=== PATIENT | female | born 1995 | race Two or more races ===

== ENCOUNTER 2019-12-03 09:32 | Inpatient (IN) ==
[2019-12-03] MEDS ORDERED: MEPERIDINE 50 MG/1 ML VIAL IV PRN (12:51)
[2019-12-03] MEDS ORDERED: ONDANSETRON 4 MG/2 ML VIAL IV PRN (12:51)
[2019-12-03] MEDS ORDERED: BUTORPHANOL 2 MG/ML VIAL IV PRN (12:51)
[2019-12-03] MEDS ORDERED: AMPICILLIN INJ 2,000 MG in SODIUM CHLORIDE 0.9% 100 ML IV ONE (13:23)
[2019-12-03 13:42] LABS: Albumin 2.7 G/DL (3.4-5.0); Bilirubin,Total 0.4 MG/DL (0.2-1.0); Calcium 8.8 MG/DL (8.5-10.1); Osmolality,Calculated 267.8 MOS/KG (273-304); Total Protein 6.4 G/DL (6.4-8.3)
[2019-12-03 13:43] LABS: Basophils % 0.2 % (0.0-0.8); Eosinophils % 0.4 % (0.00-10.9); Hematocrit 29.1 VOL% (35.7-47.0); Hemoglobin 9.2 GM/DL (12.0-16.0); Immature Granulocytes % 1.2 %; Immature Granulocytes Absolute 0.11 #; Lymphocytes # 1.4 10*3/uL (1.4-4.0); Lymphocytes % 15.4 % (21.3-54.2); Mean Corpuscular HGB Conc 31.6 GM/DL (32-36); Mean Corpuscular Volume 80.4 FL (87-102); Mean Platelet Volume 11.2 FL (9.6-12.0); Monocytes % 6.2 % (1.7-12.7); Neutrophils % 76.6 % (38.7-73.9); Platelet Count 196 T/CUMM (130-400); Red Blood Count 3.62 MC/CUMM (3.8-5.5); Red Cell Distribution Width 12.8 % (9.3-17.3); White Blood Count 9.4 T/CUMM (4-12)
[2019-12-03] MEDS: LACTATED RINGERS 1,000 ML IV SCH (13:45)
[2019-12-03] MEDS: AMPICILLIN INJ 1,000 MG in SODIUM CHLORIDE 0.9% 100 ML IV SCH ×2 (18:17→22:00)
[2019-12-04] MEDS ORDERED: OXYTOCIN/LR 20 UNIT/1,000 ML BAG IV SCH (02:00)
[2019-12-04] MEDS: AMPICILLIN INJ 1,000 MG in SODIUM CHLORIDE 0.9% 100 ML IV SCH ×2 (02:17→06:51)
[2019-12-04] MEDS: LACTATED RINGERS 1,000 ML IV SCH (03:57)
[2019-12-04] MEDS ORDERED: NALOXONE 0.4 MG/ML VIAL IV PRN (05:23)
[2019-12-04] MEDS ORDERED: ePHEDrine 50 MG/ML VIAL IV PRN (05:23)
[2019-12-04] MEDS ORDERED: diphenhydrAMINE 50 MG/1 ML VIAL IV PRN (05:23)
[2019-12-04] MEDS ORDERED: fentaNYL 2 MCG/ROPIV 0.2% EPID 100 ML EPIDURAL SCH (05:30)
[2019-12-04] MEDS ORDERED: FAMOTIDINE 20 MG/2 ML VIAL IV PRN (05:32)
[2019-12-04] MEDS ORDERED: CITRIC ACID/SODIUM CITRATE 30 ML UDCUP PO PRN (05:32)
[2019-12-04] MEDS ORDERED: miSOPROStoL 200 MCG TABLET ONE (08:58)
[2019-12-04] MEDS ORDERED: METHYLERGONOVINE 0.2 MG/1 ML AMP ONE (08:59)
[2019-12-04 09:40] LABS: Cord Venous Blood HCO3 22.6 MMOL/L; Cord Venous Blood PCO2 47.2 MMHG; Cord Venous Blood PO2 32.9
[2019-12-04 09:45] LABS: Apearance,Urine CLEAR (Clear); Bilirubin,Urine Negative (Negative); Blood, Urine Negative (Negative); Glucose,Urine (UA) Negative (Negative); Ketones,Urine 20 mg/dL (Negative); Mucus,Urine Occasional /LPF (Occasional); Nitrite,Urine Negative (Negative); Protein,Urine Negative; RBC,Urine <1 /HPF (0-4); Urine Color Yellow (Yellow); Urine Specific Gravity 1.011 (1.001-1.035)
[2019-12-04] MEDS ORDERED: DIPH/TET/ACEL PERT BOOSTER VACCINE 0.5 ML VIAL IM ONE (12:44)
[2019-12-04] MEDS ORDERED: MEASLES/MUMPS/RUBELLA VACCINE 0.5 ML VIAL SUBCUT ONE (12:44)
[2019-12-04] MEDS ORDERED: HYDROCORTISONE 2.5% RECTAL CREAM 30 GM TUBE TOP PRN (13:00)
[2019-12-04] MEDS ORDERED: BENZOCAINE 20%/MENTHOL 0.5% SPRAY 56 GM CAN TOP PRN (13:00)
[2019-12-04] MEDS ORDERED: ACETAMINOPHEN 325 MG TABLET PO PRN (13:00)
[2019-12-04] MEDS ORDERED: LANOLIN 50% CREAM 0.3 OZ TUBE TOP PRN (13:00)
[2019-12-04] MEDS ORDERED: IBUPROFEN 800 MG TABLET PO PRN (13:00)
[2019-12-04] MEDS ORDERED: oxyCODONE/ACETAMINOPHEN 5-325 MG TABLET PO PRN ×2 (13:00)
[2019-12-04] MEDS ORDERED: RHO(D) IMMUNE GLOBULIN 300 MCG SYRINGE IM ONE (13:00)
[2019-12-04] MEDS ORDERED: WITCH HAZEL PADS 100/JAR TOP PRN (13:00)
[2019-12-04] MEDS ORDERED: OXYTOCIN/LR 20 UNIT/1,000 ML BAG IV ONE (14:00)
[2019-12-04] MEDS: FERROUS SULFATE 325 MG TABLET PO SCH ×2 (16:05→22:42)
[2019-12-04] MEDS: DOCUSATE SODIUM 100 MG CAPSULE PO SCH (21:17)
[2019-12-05 04:56] LABS: Basophils % 0.1 % (0.0-0.8); Eosinophils # 0.1 10*3/uL (0.0-0.87); Eosinophils % 0.6 % (0.00-10.9); Hemoglobin 7.7 GM/DL (12.0-16.0); Immature Granulocytes % 1.1 %; Immature Granulocytes Absolute 0.11 #; Lymphocytes # 2.1 10*3/uL (1.4-4.0); Lymphocytes % 20.4 % (21.3-54.2); Mean Corpuscular HGB Conc 30.8 GM/DL (32-36); Mean Platelet Volume 11.9 FL (9.6-12.0); Monocytes % 9.1 % (1.7-12.7); Neutrophils % 68.7 % (38.7-73.9); Platelet Count 187 T/CUMM (130-400); Red Blood Count 3.05 MC/CUMM (3.8-5.5); Red Cell Distribution Width 12.7 % (9.3-17.3); White Blood Count 10.1 T/CUMM (4-12)
[2019-12-05] MEDS ORDERED: BISACODYL 10 MG SUPP RECTAL PRN (09:00)
[2019-12-05] MEDS ORDERED: SODIUM CHLORIDE 0.9% 1,000 ML IV PRN (09:58)
[2019-12-05] MEDS ORDERED: RHO(D) IMMUNE GLOBULIN 300 MCG SYRINGE IM ONE (10:30)
[2019-12-05] MEDS: DOCUSATE SODIUM 100 MG CAPSULE PO SCH ×2 (10:33→21:35)
[2019-12-05] MEDS: FERROUS SULFATE 325 MG TABLET PO SCH ×2 (10:34→21:34)
[2019-12-06 06:29] LABS: Hematocrit 33.5 VOL% (35.7-47.0); Hemoglobin 10.8 GM/DL (12.0-16.0)
[2019-12-06 08:29] VITALS: BP 105/59
[2019-12-06] MEDS: FERROUS SULFATE 325 MG TABLET PO SCH (09:20)
[2019-12-06] MEDS: DOCUSATE SODIUM 100 MG CAPSULE PO SCH (09:20)
== END 2019-12-06 12:20 | disposition home or self-care (01) | DRG 560 ==
LOC: N.LDOUT 09:32 → N.LD 09:35 → N.OB 12-04 12:15
PROVIDERS: ADMIT Obstetrics & Gynecology; ATTEND Obstetrics & Gynecology